=== PATIENT | female | born 1955 | race Caucasian/White ===

== ENCOUNTER 2019-11-06 09:11 | Day surgery (SDC) | payer MEDICARE ==
[~2019-11-06] VITALS: Ht 160 cm; Wt 48.4 kg
[2019-11-06] MEDS ORDERED: LACTATED RINGERS 1,000 ML IV SCH ×2 (09:26→09:29)
[2019-11-06] MEDS ORDERED: CHLORHEXIDINE 15 ML UDC MM ONE (09:30)
[2019-11-06] MEDS ORDERED: LIDOCAINE-MPF 1%, 2ML INFIL ONE ×2 (09:30)
[2019-11-06] MEDS ORDERED: AMLO10TA8 PO (09:41)
[2019-11-06] MEDS ORDERED: TRAM50TA2 PO (09:41)
[2019-11-06] MEDS ORDERED: FLUO20CA23 PO (09:41)
[2019-11-06] MEDS ORDERED: ROPI2TAB6 PO (09:41)
[2019-11-06] MEDS ORDERED: CHLORHEXIDINE 15 ML UDC ONE ×2 (09:44)
[2019-11-06 09:48] VITALS: BP 120/75
[2019-11-06] MEDS ORDERED: PLEASE ENTER HEIGHT AND WEIGHT MC SCH (10:00)
[2019-11-06] MEDS ORDERED: PLEASE ENTER ALLERGIES MC SCH (10:00)
[2019-11-06 10:24] LABS: ALANINE AMINOTRANSFERASE 25 U/L (12-78); ALBUMIN 3.7 g/dL (3.4-5.0); ANION GAP 7 mmol/L (5-15); CALCIUM 9.3 mg/dL (8.5-10.1); CHLORIDE 111 mmol/L (98-107)
[2019-11-06 10:26] LABS: ALKALINE PHOSPHATASE 61 U/L (45-117); BILIRUBIN,TOTAL 0.4 mg/dL (0.2-1.0); TOTAL PROTEIN 6.7 g/dL (6.4-8.2)
[2019-11-06] MEDS ORDERED: MIDAZOLAM 1 MG/ML, 2ML ONE (11:29)
[2019-11-06] MEDS ORDERED: FENTANYL PF 250 MCG/5ML ONE (11:29)
[2019-11-06] MEDS ORDERED: GLYCOPYRROLATE 0.2MG/1ML, 5ML ONE (11:29)
[2019-11-06] MEDS ORDERED: DEXAMETHASONE 4 MG/ML, 1ML ONE (11:29)
[2019-11-06] MEDS ORDERED: PROPOFOL 10 MG/ML, 20ML ONE (11:29)
[2019-11-06] MEDS ORDERED: LIDOCAINE-MPF 2% ,5ML ONE (11:29)
[2019-11-06] MEDS ORDERED: ROCURONIUM 10MG/ML,5ML ONE (11:29)
[2019-11-06] MEDS ORDERED: HYDROcodone/APAP 7.5-325MG/15ML UDC PO PRN (11:30)
[2019-11-06] MEDS ORDERED: OXYcodone 5 MG/5 ML ORAL.SOL UDC PO PRN (11:30)
[2019-11-06] MEDS ORDERED: METOCLOPRAMIDE 5 MG/ML, 2ML IVPush PRN (11:30)
[2019-11-06] MEDS ORDERED: DIAZEPAM 5 MG/ML, 2ML IVPush PRN (11:30)
[2019-11-06] MEDS ORDERED: HALOPERIDOL 5 MG/ML IV PRN (11:30)
[2019-11-06] MEDS ORDERED: DIPHENHYDRAMINE 50 MG/ML, 1ML IVPush PRN (11:30)
[2019-11-06] MEDS ORDERED: ALBUTEROL/IPRATROPIUM 2.5MG/0.5MG, 3 ML NPPB PRN (11:30)
[2019-11-06] MEDS ORDERED: KETOROLAC 30 MG/1 ML IVPush PRN ×2 (11:30→14:30)
[2019-11-06] MEDS ORDERED: ACETAMINOPHEN 325 MG TABLET PO PRN (11:30)
[2019-11-06] MEDS ORDERED: MEPERIDINE/PF 25MG/0.5ML IVPush PRN (11:30)
[2019-11-06] MEDS ORDERED: ONDANSETRON 2MG/ML, 2ML IVPush PRN (11:30)
[2019-11-06] MEDS ORDERED: EPHEDRINE 50 MG/ML, 1ML IM PRN (11:30)
[2019-11-06] MEDS ORDERED: METHOCARBAMOL 1,000 MG in DEXTROSE 5% 100 ML IV PRN (11:30)
[2019-11-06] MEDS ORDERED: MIDAZOLAM 1 MG/ML, 2ML IV PRN (11:30)
[2019-11-06] MEDS ORDERED: HYDROmorphone 1 MG/ML, 1ML INJ IVPush PRN (11:30)
[2019-11-06] MEDS ORDERED: FENTANYL PF 100 MCG/2ML IV PRN (11:30)
[2019-11-06] MEDS ORDERED: LABETALOL 5MG/ML, 20ML IV PRN (11:30)
[2019-11-06] MEDS ORDERED: LORazepam 2 MG/ML, 1ML IVPush PRN (11:30)
[2019-11-06] MEDS ORDERED: EPHEDRINE 50 MG/ML, 1ML IVPush PRN (11:30)
[2019-11-06] MEDS ORDERED: hydrALAzine 20 MG/ML, 1ML IV PRN (11:30)
[2019-11-06] MEDS ORDERED: CEFAZOLIN 1,000 MG ONE (12:08)
[2019-11-06] MEDS ORDERED: OPIUM/BELLADONNA SUPP.RECT 16.2-60 MG ONE (13:37)
[2019-11-06] MEDS ORDERED: KETOROLAC 30 MG/1 ML ONE (14:16)
[2019-11-06] MEDS ORDERED: OXYcodone 5 MG/5 ML ORAL.SOL UDC ONE ×2 (14:17→14:18)
[2019-11-06] MEDS ORDERED: FENTANYL PF 100 MCG/2ML ONE (14:24)
== END 2019-11-06 17:00 | disposition home or self-care (01) ==
LOC: OUT 09:11
PROVIDERS: ATTEND Urology
DX: C68.8 Malignant neoplasm of overlapping sites of urinary organs (principal); Z20.828 Contact with and (suspected) exposure to other viral communicable diseases; I10 Essential (primary) hypertension; F32.9 Major depressive disorder, single episode, unspecified; G25.81 Restless legs syndrome; Z79.899 Other long term (current) drug therapy; Z87.891 Personal history of nicotine dependence
CPT/HCPCS: 36415; 52240; 80053; 87635; 88307; 93005; C1758; J0690; J1100; J1885; J2250; J2704; J3010; J7120; J2175